=== PATIENT | male | born 1985 | race Caucasian/White ===

== ENCOUNTER 2016-07-18 06:42 | Emergency (ER) | payer SELFPAY ==
[~2016-07-18] VITALS: Ht 170.2 cm; Wt 72.6 kg
[2016-07-18 06:42] VITALS: BP 137/79; PULSE 68; RESP 17; TEMP 97.8; O2SAT 98
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
[2016-07-18] MEDS ORDERED: DIPH-TET-PERTUS Vaccine 0.5 ML VIAL (ADACEL) I.M. ONE (07:30)
[2016-07-18] MEDS ORDERED: HYDROcodone/ACETAMIN 5-325 MG TAB (NORCO/ VICODIN) PO ONE (07:30)
[2016-07-18] MEDS ORDERED: IBUPROFEN 800 MG TABLET PO ONE (07:30)
[2016-07-18] MEDS ORDERED: SULFAMETHOXAZOLE/TRIMETHOPR DS 1 TABLET PO ONE (07:30)
--- NOTE | 2016-07-18 07:30 | NUR ---
Dr. Rosales at bedside to assess pt.
--- NOTE | 2016-07-18 07:40 | NUR ---
Pt to x-ray.
--- NOTE | 2016-07-18 07:50 | NUR ---
Pt returns from x-ray.
--- NOTE | 2016-07-18 08:24 | NUR ---
Wrist splint applied. Cap refill < 3 sec to nail beds.
--- NOTE | 2016-07-18 08:28 | NUR ---
Dr. Rosales at bedside to discuss results of x-rays.
[2016-07-18 08:32] VITALS: BP 128/76; PULSE 72; RESP 20; TEMP 98; O2SAT 100
--- NOTE | 2016-07-18 08:32 | NUR ---
Patient given written and verbal discharge instructions and verbalizes understanding. ER MD discussed with patient the results and treatment provided. Patient in stable condition. ID arm band removed. Rx of [place], Motrin, and Soma given. Patient educated on pain management and to follow up with PMD. Pain Scale 4/10, pt medicated. Opportunity for questions provided and answered.
== END 2016-07-18 08:32 | disposition home or self-care (01) ==
LOC: SED 06:42
DX: S63.681A Other sprain of right thumb, initial encounter (principal); S50.01XA Contusion of right elbow, initial encounter; S70.11XA Contusion of right thigh, initial encounter; V87.8XXA Person injured in other specified noncollision transport accidents involving motor vehicle (traffic), initial encounter; Y93.55 Activity, bike riding; Y92.488 Other paved roadways as the place of occurrence of the external cause; Y99.8 Other external cause status
CPT/HCPCS: 73140-TC; 73552; 90715; 99284